=== PATIENT | male | born 1960 | race Caucasian/White ===

== ENCOUNTER 2022-07-15 14:28 | Outpatient (CLI) | payer OTHER | END 2022-07-15 14:29 | disposition home or self-care (01) | LOC: RAD 14:28 | PROVIDERS: ATTEND Internal Medicine | DX: Z02.71 Encounter for disability determination (principal) | CPT/HCPCS: 71046 ==

== ENCOUNTER 2023-05-12 20:14 | Emergency (ER) | payer OTHER | END 2023-05-12 21:31 | disposition home or self-care (01) | LOC: ERS 20:14 | DX: Z00.00 Encounter for general adult medical examination without abnormal findings (principal) | CPT/HCPCS: 99281 ==